=== PATIENT | male | born 1965 | race African-American/Black ===

== ENCOUNTER 2018-10-22 16:35 | Emergency (ER) | payer OTHER ==
[~2018-10-22] VITALS: Ht 182.9 cm; Wt 102.1 kg
[2018-10-22 17:52] LABS: Urine Bacteria NONE SEEN /hpf (None Seen); Urine Blood 1+ /uL (Negative); Urine Mucus FEW (None Seen); Urine Specific Gravity 1.026 (1.001-1.035); Urine WBC 17 /hpf (0 - 3)
[2018-10-23] MEDS ORDERED: AZITHROMYCIN 250 MG TAB PO ONE (01:00)
[2018-10-23] MEDS ORDERED: HYDROcodone-ACET 7.5/325MG TAB PO ONE (01:00)
[2018-10-23] MEDS ORDERED: CEFTRIAXONE SODIUM 2 GM in D5W 5% 50 ML IV ONE (01:00)
[2018-10-23] MEDS ORDERED: KETOROLAC TROMETH 30 MG/ML 1ML VIAL IV ONE (01:00)
[2018-10-23] MEDS ORDERED: cefTRIAXone SOD 1,000 MG VL ONE (01:22)
[2018-10-23] MEDS ORDERED: cefTRIAXone 1GM/50ML D5W 50 ML IV ONE (01:22)
[2018-10-23 02:17] VITALS: BP 166/98
== END 2018-10-23 02:54 | disposition home or self-care (01) ==
LOC: ER 16:35
DX: N45.3 Epididymo-orchitis (principal)
CPT/HCPCS: 76870; 81001; 96365; 96375; 99284; J0696; J1885; J7060